=== PATIENT | female | born 1995 | race Caucasian/White ===

== ENCOUNTER 2018-12-10 16:05 | Emergency (ER) | payer SELFPAY ==
[2018-12-10] MEDS ORDERED: Ondansetron ODT 4 MG TAB ONE (16:27)
== END 2018-12-10 17:00 | disposition home or self-care (01) ==
LOC: MADERS 16:05
DX: T62.8X1A Toxic effect of other specified noxious substances eaten as food, accidental (unintentional), initial encounter (principal); F41.9 Anxiety disorder, unspecified
CPT/HCPCS: 99283; Q0162